=== PATIENT | male | born 1970 | race Caucasian/White ===

== ENCOUNTER 2021-07-15 11:48 | Inpatient (IN) | payer MEDICAID, OTHER ==
[~2021-07-15] VITALS: Ht 180.3 cm; Wt 109.1 kg
[2021-07-15 13:11] LABS: BASOPHILS # (AUTO) 0.1 X10'3 (0-0.2); BASOPHILS % (AUTO) 0.7 % (0-1); EOSINOPHILS # (AUTO) 0.6 X10'3 (0-0.9); EOSINOPHILS % (AUTO) 4.3 % (0-6); HEMATOCRIT 47.4 % (42.0-52.0); HEMOGLOBIN 16.2 g/dl (14.0-17.9); LYMPHOCYTES # (AUTO) 2.6 X10'3 (1.1-4.8); LYMPHOCYTES % (AUTO) 18.1 % (21-51); MEAN CORPUSCULAR HEMOGLOBIN 31.8 PG (27.0-31.0); MEAN CORPUSCULAR HGB CONC 34.1 g/dL (33.0-36.5); MEAN CORPUSCULAR VOLUME 93.1 FL (78-98); MEAN PLATELET VOLUME 8.7 FL (7.4-10.4); MONOCYTES % (AUTO) 7.1 % (2-12); NEUTROPHILS # (AUTO) 10.1 X10'3 (1.8-7.7); NEUTROPHILS % (AUTO) 69.8 % (42-75); PLATELET COUNT 353 X10'3 (140-440); RED BLOOD COUNT 5.09 X10'6 (4.70-6.10); WHITE BLOOD COUNT 14.5 X10'3 (4.5-11.0)
[2021-07-15 13:19] LABS: PARTIAL THROMBOPLASTIN TIME 27 SECONDS (22-32)
[2021-07-15 13:22] LABS: ALANINE AMINOTRANSFERASE 89 U/L (12-78); ALKALINE PHOSPHATASE 185 IU/L (46-116); ANION GAP 11 (8-16); ASPARTATE AMINO TRANSFERASE 40 U/L (10-37); BILIRUBIN,TOTAL 0.4 MG/DL (0.1-1.0); BLOOD UREA NITROGEN 20 MG/DL (7-18); BUN/CREATININE RATIO 14.2 (5.4-32.0); CALCIUM 9.9 MG/DL (8.5-10.1); CHLORIDE 102 MMOL/L (99-107); CREATININE 1.41 MG/DL (0.60-1.10); GLUCOSE 102 MG/DL (70-104); LIPASE 85 U/L (73-393); POTASSIUM 4.4 MMOL/L (3.5-5.1); SODIUM 140 MMOL/L (135-145); TOTAL CARBON DIOXIDE 27.5 MMOL/L (24-32); eGFR 53 ML/MIN
[2021-07-15] MEDS ORDERED: morphine 4 MG/ML inj SYRINge IV ONE (15:30)
[2021-07-15] MEDS ORDERED: vancomycin/NS 1 GM ADD-VANTAGE 250 ML IV ONE (15:30)
[2021-07-15] MEDS ORDERED: piperacillin/tazo 3.375gm/50ml 50 ML IV ONE (15:30)
[2021-07-15] MEDS ORDERED: normal saline 1000ML IV soln IV ONE (15:30)
[2021-07-15] MEDS ORDERED: LISI20TA28 PO (16:44)
[2021-07-15] MEDS ORDERED: DOCU-342 PO (16:44)
[2021-07-15] MEDS ORDERED: SIMV-42 PO (16:44)
[2021-07-15] MEDS ORDERED: ATEN100T PO (16:44)
[2021-07-15] MEDS ORDERED: ALLO300T8 PO (16:44)
[2021-07-15] MEDS ORDERED: AMOX-580 PO (16:44)
[2021-07-15] MEDS ORDERED: HYDROcodone/acetaminophen 5mg/325mg tablet PO PRN (20:20)
[2021-07-15] MEDS ORDERED: ondansetron/PF 4mg/2ml inj IV PRN (20:20)
[2021-07-15] MEDS ORDERED: morphine 2 MG/ML inj. syringe IV PRN (20:20)
[2021-07-15] MEDS ORDERED: acetaminophen 650mg rectal suppository RC PRN (20:20)
[2021-07-15] MEDS ORDERED: magnesium hydroxide 30ml (MOM) UD suspension PO PRN (20:20)
[2021-07-15] MEDS ORDERED: diphenhydrAMINE 25mg capsule PO PRN (20:20)
[2021-07-15] MEDS: normal saline 1000ml 1,000 ML IV SCH (20:20)
[2021-07-15] MEDS ORDERED: potassium Cl 40MEQ/1/2NS 520ml 520 ML IV PRN ×2 (20:20)
[2021-07-15] MEDS ORDERED: potassium Cl 20 mEq SR tablet PO PRN ×2 (20:20)
[2021-07-15] MEDS ORDERED: acetaminophen 325mg tablet PO PRN ×2 (20:20)
[2021-07-15] MEDS ORDERED: magnesium 2GM in 50ml NS 50 ML IV PRN (20:20)
[2021-07-15] MEDS ORDERED: mag hydrox/Alum hydrox/simeth 30ml oral suspension PO PRN (20:20)
[2021-07-15] MEDS ORDERED: bisacodyl 10mg suppository rectal RC PRN (20:20)
[2021-07-15] MEDS ORDERED: magnesium 4gm in 100ml NS 100 ML IV PRN (20:20)
[2021-07-15] MEDS ORDERED: magnesium Cl slow-release 64mg tablet PO PRN (20:20)
[2021-07-15 20:42] LABS: HEMOGLOBIN A1C 5.7 % (4.5-6.2)
[2021-07-16] VITALS (7 sets, daily range): BP systolic 128–152; BP diastolic 81–100
[2021-07-16 00:57] LABS: BASOPHILS # (AUTO) 0.1 X10'3 (0-0.2); BASOPHILS % (AUTO) 0.5 % (0-1); EOSINOPHILS # (AUTO) 0.8 X10'3 (0-0.9); EOSINOPHILS % (AUTO) 7.1 % (0-6); HEMATOCRIT 40.2 % (42.0-52.0); HEMOGLOBIN 13.7 g/dl (14.0-17.9); LYMPHOCYTES # (AUTO) 2.7 X10'3 (1.1-4.8); LYMPHOCYTES % (AUTO) 23.7 % (21-51); MEAN CORPUSCULAR HEMOGLOBIN 31.8 PG (27.0-31.0); MEAN CORPUSCULAR HGB CONC 34.2 g/dL (33.0-36.5); MEAN CORPUSCULAR VOLUME 93.1 FL (78-98); MEAN PLATELET VOLUME 8.5 FL (7.4-10.4); MONOCYTES % (AUTO) 8.5 % (2-12); NEUTROPHILS # (AUTO) 6.7 X10'3 (1.8-7.7); NEUTROPHILS % (AUTO) 60.2 % (42-75); PLATELET COUNT 256 X10'3 (140-440); RED BLOOD COUNT 4.32 X10'6 (4.70-6.10); RED CELL DISTRIBUTION WIDTH 14.2 % (11.5-14.5); WHITE BLOOD COUNT 11.2 X10'3 (4.5-11.0)
[2021-07-16 01:15] LABS: ALANINE AMINOTRANSFERASE 62 U/L (12-78); ALBUMIN/GLOBULIN RATIO 0.9 (1.1-1.5); ALKALINE PHOSPHATASE 125 IU/L (46-116); ANION GAP 10 (8-16); ASPARTATE AMINO TRANSFERASE 22 U/L (10-37); BILIRUBIN,TOTAL 0.6 MG/DL (0.1-1.0); BLOOD UREA NITROGEN 21 MG/DL (7-18); BUN/CREATININE RATIO 17.9 (5.4-32.0); CALCIUM 8.4 MG/DL (8.5-10.1); CHLORIDE 108 MMOL/L (99-107); CHOL/HDL RATIO 4.9 (0.00-4.99); CHOLESTEROL 157 MG/DL (0-200); CREATININE 1.17 MG/DL (0.60-1.10); GLUCOSE 74 MG/DL (70-104); HDL CHOLESTEROL 32 MG/DL (35-60); LDL CHOLESTEROL 99 MG/DL (50-100); MAGNESIUM 1.8 MG/DL (1.5-2.4); PHOSPHORUS 3.9 MG/DL (2.3-4.5); SODIUM 143 MMOL/L (135-145); TOTAL CARBON DIOXIDE 25.3 MMOL/L (24-32); TOTAL PROTEIN 6.2 G/DL (6.4-8.2); TRIGLYCERIDES 168 MG/DL (20-135); eGFR 65 ML/MIN
[2021-07-16] MEDS: normal saline 1000ml 1,000 ML IV SCH ×2 (06:31→16:16)
[2021-07-16] MEDS: vancomycin/NS 1 GM ADD-VANTAGE 250 ML X 1 DOSE IV SCH ×2 (06:56→18:16)
[2021-07-16] MEDS ORDERED: diatrozoate meglu/diatrozoate sod (37% iodine) 120ML oral solution PO ONE (07:55)
--- NOTE | 2021-07-16 07:57 | NUR ---
Spoke with Alisa MASON for patient asking if she can give the oral Gastroview for abscess drainage to be done this afternoon.
[2021-07-16] MEDS: allopurinol 300 MG tablet PO SCH (08:00)
[2021-07-16] MEDS: atorvastatin 10mg tablet PO SCH (08:00)
[2021-07-16] MEDS: lisinopril 20mg tablet PO SCH (08:00)
[2021-07-16] MEDS: K and/or MAG REPLACEMENT MC SCH ×2 (08:00→20:23)
[2021-07-16] MEDS: docusate sod 100mg capsule PO SCH ×2 (08:00→20:18)
[2021-07-16] MEDS: atenolol 50mg tablet PO SCH (08:00)
[2021-07-16] MEDS ORDERED: HYDR-3964 PO (08:52)
[2021-07-16] MEDS ORDERED: ALBU90AE INH (08:52)
[2021-07-16] MEDS: piperacillin/tazo 3.375gm/50ml 50 ML IV SCH ×3 (09:51→16:08)
[2021-07-16] MEDS ORDERED: midazolam 1 mg/ML 2ml injection ONE (11:34)
[2021-07-16] MEDS ORDERED: fentaNYL/PF 50MCG/1 ML 2ML syringe ONE ×2 (11:34→12:02)
[2021-07-16] MEDS: morphine 2 MG/ML inj. syringe IV PRN ×2 (14:53→20:18)
[2021-07-16] MEDS: HYDROcodone/acetaminophen 10/325mg tab PO PRN ×2 (16:08→21:25)
--- NOTE | 2021-07-16 18:34 | NUR ---
ASSUMED CARE OF PT. PT HAS AN INPATIENT ROOM ASSIGNMENT. WAITING TO GIVE REPORT TO RN. PT IS LYING ON BED. REPORTS MODERATE PAIN. HE WAS ABLE TO AMBULATE TO RESTROOM ON HIS OWN. MIKE DRAIN ASSESSED.
[2021-07-17] VITALS: BP 134/88
[2021-07-17] MEDS: piperacillin/tazo 3.375gm/50ml 50 ML IV SCH ×3 (00:16→16:50)
[2021-07-17] MEDS: normal saline 1000ml 1,000 ML IV SCH ×3 (00:31→22:20)
[2021-07-17] MEDS: HYDROcodone/acetaminophen 10/325mg tab PO PRN ×5 (01:22→21:02)
--- NOTE | 2021-07-17 03:41 | NUR ---
Pt was not on floor when 2000 vital signs were taken.
[2021-07-17] MEDS ORDERED: VANCOMYCIN LEVEL IV ONE (04:30)
[2021-07-17 04:51] LABS: BASOPHILS # (AUTO) 0.1 X10'3 (0-0.2); BASOPHILS % (AUTO) 0.9 % (0-1); EOSINOPHILS # (AUTO) 0.3 X10'3 (0-0.9); EOSINOPHILS % (AUTO) 2.4 % (0-6); HEMATOCRIT 40.9 % (42.0-52.0); HEMOGLOBIN 13.9 g/dl (14.0-17.9); LYMPHOCYTES # (AUTO) 1.6 X10'3 (1.1-4.8); LYMPHOCYTES % (AUTO) 11.8 % (21-51); MEAN CORPUSCULAR HEMOGLOBIN 31.6 PG (27.0-31.0); MEAN CORPUSCULAR HGB CONC 34.1 g/dL (33.0-36.5); MEAN CORPUSCULAR VOLUME 92.7 FL (78-98); MEAN PLATELET VOLUME 8.3 FL (7.4-10.4); MONOCYTES # (AUTO) 0.7 X10'3 (0-0.9); MONOCYTES % (AUTO) 5.1 % (2-12); NEUTROPHILS # (AUTO) 11.1 X10'3 (1.8-7.7); NEUTROPHILS % (AUTO) 79.8 % (42-75); PLATELET COUNT 214 X10'3 (140-440); RED BLOOD COUNT 4.41 X10'6 (4.70-6.10); RED CELL DISTRIBUTION WIDTH 13.7 % (11.5-14.5)
[2021-07-17 05:02] LABS: ALANINE AMINOTRANSFERASE 40 U/L (12-78); ALBUMIN/GLOBULIN RATIO 0.9 (1.1-1.5); ALKALINE PHOSPHATASE 123 IU/L (46-116); ANION GAP 8 (8-16); ASPARTATE AMINO TRANSFERASE 16 U/L (10-37); BILIRUBIN,TOTAL 0.8 MG/DL (0.1-1.0); BLOOD UREA NITROGEN 14 MG/DL (7-18); BUN/CREATININE RATIO 13.2 (5.4-32.0); CALCIUM 8.6 MG/DL (8.5-10.1); CHLORIDE 105 MMOL/L (99-107); CREATININE 1.06 MG/DL (0.60-1.10); GLUCOSE 88 MG/DL (70-104); MAGNESIUM 1.8 MG/DL (1.5-2.4); PHOSPHORUS 3.6 MG/DL (2.3-4.5); SODIUM 139 MMOL/L (135-145); TOTAL CARBON DIOXIDE 25.8 MMOL/L (24-32); TOTAL PROTEIN 6.5 G/DL (6.4-8.2); VANCOMYCIN,TROUGH 9.8 UG/ML (6.0-14.0); eGFR 73 ML/MIN
[2021-07-17] MEDS: vancomycin/NS 1 GM ADD-VANTAGE 250 ML X 1 DOSE IV SCH ×3 (05:09→21:00)
[2021-07-17 05:26] LABS: TOTAL CELLS COUNTED 100
[2021-07-17 05:27] LABS: PLATELET ESTIMATE NORMAL
[2021-07-17 07:00] VITALS: BP 159/99
[2021-07-17] MEDS: docusate sod 100mg capsule PO SCH ×3 (07:15→19:42)
[2021-07-17] MEDS: lisinopril 20mg tablet PO SCH (07:15)
[2021-07-17] MEDS: atorvastatin 10mg tablet PO SCH (07:16)
[2021-07-17] MEDS: allopurinol 300 MG tablet PO SCH (07:16)
[2021-07-17] MEDS: atenolol 50mg tablet PO SCH (07:16)
[2021-07-17] MEDS: K and/or MAG REPLACEMENT MC SCH ×2 (08:00→20:00)
[2021-07-17 12:00] VITALS: BP 135/80
[2021-07-17 18:00] VITALS: BP 135/82
--- NOTE | 2021-07-17 18:16 | NUR ---
Patient in room [facility]. I have received report from ISABELLA Hawthorne and had the opportunity to ask questions and assume patient care.
--- NOTE | 2021-07-17 18:35 | NUR ---
Problems reprioritized. Patient report given, questions answered & plan of care reviewed with ISABELLA Guerin.
[2021-07-17] MEDS: lactobacillus rhamnosus 10,000 MMU CELLS/CAPSULE PO SCH (19:41)
[2021-07-18] VITALS: BP 130/88
[2021-07-18] MEDS: normal saline 1000ml 1,000 ML IV SCH (00:07)
[2021-07-18] MEDS: piperacillin/tazo 3.375gm/50ml 50 ML IV SCH ×2 (00:07→09:23)
[2021-07-18] MEDS: HYDROcodone/acetaminophen 10/325mg tab PO PRN ×2 (01:59→09:55)
[2021-07-18] MEDS ORDERED: VANCOMYCIN LEVEL IV ONE ×2 (04:30→12:30)
--- NOTE | 2021-07-18 05:44 | NUR ---
Awaiting on lab to do Vanco trough. Two attempts were made but unable to draw. Need to hold Vanco until after lab draw.
[2021-07-18] MEDS: vancomycin/NS 1 GM ADD-VANTAGE 250 ML X 1 DOSE IV SCH (06:01)
--- NOTE | 2021-07-18 06:23 | NUR ---
Problems reprioritized. Patient report given, questions answered & plan of care reviewed with ISABELLA Hawthorne.
[2021-07-18 06:26] LABS: BASOPHILS % (AUTO) 0.3 % (0-1); EOSINOPHILS # (AUTO) 0.2 X10'3 (0-0.9); EOSINOPHILS % (AUTO) 1.8 % (0-6); HEMATOCRIT 37.8 % (42.0-52.0); HEMOGLOBIN 12.7 g/dl (14.0-17.9); LYMPHOCYTES # (AUTO) 1.6 X10'3 (1.1-4.8); LYMPHOCYTES % (AUTO) 12.3 % (21-51); MEAN CORPUSCULAR HEMOGLOBIN 31.5 PG (27.0-31.0); MEAN CORPUSCULAR HGB CONC 33.6 g/dL (33.0-36.5); MEAN CORPUSCULAR VOLUME 93.8 FL (78-98); MEAN PLATELET VOLUME 8.7 FL (7.4-10.4); MONOCYTES # (AUTO) 1.2 X10'3 (0-0.9); MONOCYTES % (AUTO) 9.2 % (2-12); NEUTROPHILS # (AUTO) 10.3 X10'3 (1.8-7.7); NEUTROPHILS % (AUTO) 76.4 % (42-75); PLATELET COUNT 208 X10'3 (140-440); RED BLOOD COUNT 4.03 X10'6 (4.70-6.10); RED CELL DISTRIBUTION WIDTH 13.8 % (11.5-14.5); WHITE BLOOD COUNT 13.4 X10'3 (4.5-11.0)
[2021-07-18 06:40] LABS: ALANINE AMINOTRANSFERASE 44 U/L (12-78); ALBUMIN 2.9 G/DL (3.4-5.0); ALBUMIN/GLOBULIN RATIO 0.8 (1.1-1.5); ALKALINE PHOSPHATASE 121 IU/L (46-116); ANION GAP 7 (8-16); ASPARTATE AMINO TRANSFERASE 17 U/L (10-37); BILIRUBIN,TOTAL 0.9 MG/DL (0.1-1.0); BLOOD UREA NITROGEN 10 MG/DL (7-18); CALCIUM 8.7 MG/DL (8.5-10.1); CHLORIDE 107 MMOL/L (99-107); CREATININE 1.11 MG/DL (0.60-1.10); GLUCOSE 98 MG/DL (70-104); MAGNESIUM 1.9 MG/DL (1.5-2.4); PHOSPHORUS 3.6 MG/DL (2.3-4.5); POTASSIUM 4.3 MMOL/L (3.5-5.1); SODIUM 142 MMOL/L (135-145); TOTAL PROTEIN 6.4 G/DL (6.4-8.2); VANCOMYCIN,TROUGH 13.1 UG/ML (6.0-14.0); eGFR 70 ML/MIN
--- NOTE | 2021-07-18 06:41 | NUR ---
Patient in room [facility]. I have received report from ISABELLA Guerin and had the opportunity to ask questions and assume patient care.
[2021-07-18 08:00] VITALS: BP 138/97
[2021-07-18] MEDS: K and/or MAG REPLACEMENT MC SCH (08:00)
[2021-07-18] MEDS ORDERED: heparin, porcine 5000 units/ml vial SQ SCH (08:00)
[2021-07-18] MEDS: allopurinol 300 MG tablet PO SCH (09:05)
[2021-07-18] MEDS: atorvastatin 10mg tablet PO SCH (09:06)
[2021-07-18] MEDS: atenolol 50mg tablet PO SCH (09:06)
[2021-07-18] MEDS: docusate sod 100mg capsule PO SCH (09:06)
[2021-07-18] MEDS: lactobacillus rhamnosus 10,000 MMU CELLS/CAPSULE PO SCH (09:06)
[2021-07-18 09:22] VITALS: BP_SYST 138
[2021-07-18] MEDS: lisinopril 20mg tablet PO SCH (09:22)
[2021-07-18] MEDS ORDERED: CEFD300C3 PO (10:43)
[2021-07-18] MEDS ORDERED: METR-159 PO (10:43)
[2021-07-18] MEDS ORDERED: LACT1CAP26 PO (10:43)
--- NOTE | 2021-07-18 11:33 | NUR ---
Student documentation: I have reviewed and agree with all interventions, assessments performed and documented by SN moody. Student Medication Administration: For this medication-pass time frame, all medication were reviewed, dispensed, administered and documented per hospital policy by SN Moody.
--- NOTE | 2021-07-18 11:43 | NUR ---
PAGER ID: [phone] MESSAGE: [phone]- [place]- pt has been taking Volcano 10/325mg q4h prn. He is asking for it for dc. Thank you- Christoph 2020
--- NOTE | 2021-07-18 12:40 | NUR ---
Patient alert and oriented with no complaints. Discussed with patient discharge instructions and new prescriptions as well as MIKE care management. Patient verbalized understanding of teaching and able to return demonstrate how to empty and manage MIKE with spouse at bedside. Patient dc'd with all personal belongings.
[2021-07-18] MEDS ORDERED: HYDR-3965 PO (12:54)
[2021-07-18] MEDS ORDERED: VANCOmycin 1250MG/NS 250ml Bag 250 ML IV SCH (13:00)
== END 2021-07-18 12:44 | disposition home or self-care (01) | DRG 244 ==
LOC: ER 11:49 → ED HOLD 16:09 → UNDOADMIN 16:09 → ED HOLD 20:26 → SUR 3N 07-16 19:50
PROVIDERS: ADMIT Physician Assistant Surgical; ATTEND Physician Assistant Surgical
PROC: 0W9J30Z Drainage of Pelvic Cavity with Drainage Device, Percutaneous Approach (ICD-10-PCS; principal; 2021-07-16)
DX: K57.20 Diverticulitis of large intestine with perforation and abscess without bleeding (principal); N17.0 Acute kidney failure with tubular necrosis; B95.4 Other streptococcus as the cause of diseases classified elsewhere; E78.5 Hyperlipidemia, unspecified; I10 Essential (primary) hypertension; E86.0 Dehydration; J44.9 Chronic obstructive pulmonary disease, unspecified; B96.20 Unspecified Escherichia coli [E. coli] as the cause of diseases classified elsewhere; F17.210 Nicotine dependence, cigarettes, uncomplicated; M10.9 Gout, unspecified; Z80.1 Family history of malignant neoplasm of trachea, bronchus and lung; Z82.49 Family history of ischemic heart disease and other diseases of the circulatory system; Z80.8 Family history of malignant neoplasm of other organs or systems; Z85.51 Personal history of malignant neoplasm of bladder; Z79.899 Other long term (current) drug therapy
CPT/HCPCS: 36415; 49406; 80053; 80061; 80202; 83036; 83605; 83690; 83735; 84100; 84145; 85007; 85025; 85610; 85730; 87040; 87070; 87077; 87081; 87186; 93005; 97116; 97161; 97530; 99152; 99153; 99285; G0378; J1644; J2250; J2270; J2543; J3010; J3370; J7030; Q9963

== ENCOUNTER → 2021-07-29 | Outpatient (CLI) | payer OTHER, SELFPAY ==
[~2021-07-29] MED LIST: ALBU90AE INH; ALLO300T8 PO; ATEN100T PO; CEFD300C3 PO; DOCU-342 PO; HYDR-3964 PO; HYDR-3965 PO; LACT1CAP26 PO; LISI20TA28 PO; METR-159 PO; SIMV-42 PO; diatr meglu/diatrizoate 30ml oral sol.-(3 dose) bottle ONE; iohexol 300mg/ml 100ml inj. ONE
== END | disposition home or self-care (01) ==
LOC: RAD 12:32
PROVIDERS: ATTEND Surgery
DX: K57.30 Diverticulosis of large intestine without perforation or abscess without bleeding (principal)
CPT/HCPCS: 74177; Q9963; Q9967